=== PATIENT | female | born 1945 | race Caucasian/White ===

== ENCOUNTER → 2016-08-17 | Outpatient (CLI) | payer MEDICARE | LOC: US 08-16 14:30 | DX: R10.9 Unspecified abdominal pain (principal); R10.2 Pelvic and perineal pain; R93.8 Abnormal findings on diagnostic imaging of other specified body structures | CPT/HCPCS: 76856 ==

== ENCOUNTER 2020-06-08 20:59 | Emergency (ER) | payer OTHER ==
[~2020-06-08 20:59] MED LIST: ASPIRIN81 MG PO; ATORVASTATIN CA20 MG PO; BRILINTA 90 MG90 MG PO; CALCIUM WITH V1 EAC2 PO; CARDIZEM CD180 MG PO; CARVEDILOL3.125 MG PO; CATAPRES 0.1MG0.1 MG PO; CLARITIN10 MG PO; KRILL OIL500 MG PO; NITROGLYCERIN0.4 MG SL; POTASSIUM99 MG PO; PRINIVIL10 MG PO; XANAX0.5 MG PO; ZETIA 10 MG TAB10 MG PO; ZINC50 M1 PO
== END 2020-06-08 21:59 | disposition home or self-care (01) ==
LOC: ER1 20:59
DX: R00.0 Tachycardia, unspecified (principal); R53.1 Weakness; R06.02 Shortness of breath; T36.1X5A Adverse effect of cephalosporins and other beta-lactam antibiotics, initial encounter; I10 Essential (primary) hypertension; Z88.0 Allergy status to penicillin; Z90.710 Acquired absence of both cervix and uterus
CPT/HCPCS: 99283

== ENCOUNTER 2020-11-01 16:57 | Emergency (ER) | payer OTHER ==
[2020-11-01 23:17] LABS: HEMOGLOBIN 11.2 gm/dl (12.3-15.3); RED BLOOD COUNT 3.94 M/UL (4.00-5.10); WHITE BLOOD COUNT 11.8 K/UL (4.5-11.0)
[2020-11-01 23:34] LABS: BUN/CREATININE RATIO 25 (0-10)
[2020-11-02] MEDS ORDERED: ONDANSETRON ODT4 MG SL (00:30)
[2020-11-02] MEDS ORDERED: PROAIR HFA8.5 GM INH (00:30)
== END 2020-11-02 02:57 | disposition home or self-care (01) ==
LOC: ER1 16:57
PROVIDERS: Physician Assistant Medical
DX: Z23 Encounter for immunization (principal); U07.1 COVID-19; J12.82 Pneumonia due to coronavirus disease 2019; I25.2 Old myocardial infarction; E78.5 Hyperlipidemia, unspecified; I11.9 Hypertensive heart disease without heart failure; Z88.0 Allergy status to penicillin; Z88.2 Allergy status to sulfonamides; Z88.5 Allergy status to narcotic agent; Z90.710 Acquired absence of both cervix and uterus; Z79.899 Other long term (current) drug therapy
CPT/HCPCS: 71045; 80053; 82550; 82553; 83605; 83874; 84484; 85025; 87040; 93005; 99285; M0243

== ENCOUNTER → 2020-11-26 | Outpatient (CLI) | payer OTHER ==
[~2020-11-26] MED LIST changes: +ONDANSETRON ODT4 MG SL; +PROAIR HFA8.5 GM INH
== END ==
LOC: KOH-I 14:04
DX: M25.562 Pain in left knee (principal); M25.561 Pain in right knee
CPT/HCPCS: 73562